=== PATIENT | female | born 1955 | race Caucasian/White ===

== ENCOUNTER 2017-07-19 14:11 | Emergency (ER) | payer BC ==
--- NOTE | 2017-07-19 14:57 | ED ---
Psych HPI - General Chief Complaint: Psychiatric Symptoms Stated Complaint: Anxiety Time Seen by Provider: 07/19/17 14:30 Source: patient Mode of arrival: ambulatory - History of Present Illness Initial Comments: This 61-year-old white female presents for psychiatric evaluation. She relates that approximately 6 weeks ago she started developing significant anxiety and has been having panic attacks regularly. This seems to stem from a certain degree due to her family situation. She does complain of some depression but denies any suicidal ideations. She was started on Xanax 0.25 mg during the day and 0.5 mg at night with some mild relief. She also was started on Lexapro 10 mg daily one month ago and this was increased to 20 mg per day approximately one week ago. She denies any definitive relief with the Lexapro. She presents with her brother who gives a significant amount of the history. He relates that she is a very highly functioning individual normally but in the past 6 weeks there is been a significant decline due to the anxiety and depression. She denies any chronic medical problems and does not take any other medications. She denies any current medical issues. There is no chest pain, shortness of breath, or fevers. She does not have any previous history of psychiatric problems. She has been working with her primary care physician in regards to these issues. They saw her this morning and sent her to the ER for further psychiatric evaluation. No other complaints or modifying factors. She took a Xanax one hour prior to arrival and is refusing any additional medications at this time. - Related Data Home Medications Medication Instructions Recorded Confirmed ALPRAZolam [Xanax] 0.25 mg PO BID PRN 07/19/17 07/19/17 Escitalopram Oxalate [Lexapro] 10 mg PO DAILY 07/19/17 07/19/17 Zolpidem Tartrate [Ambien Cr] 12.5 mg PO HS 07/19/17 07/19/17 Allergies Allergy/AdvReac Type Severity Reaction Status Date / Time No Known Allergies Allergy Verified 07/19/17 15:06 Review of Systems ROS Statement: Those systems with pertinent positive or pertinent negative responses have been documented in the HPI. ROS Other: All systems not noted in ROS Statement are negative. Past Medical History Past Medical History: No Reported History History of Any Multi-Drug Resistant Organisms: None Reported Past Surgical History: Hysterectomy Past Psychological History: Anxiety, Depression Smoking Status: Current every day smoker Past Alcohol Use History: Rare Past Drug Use History: None Reported General Exam - General Exam Comments Initial Comments: GENERAL: The patient is well nourished and well hydrated. VITAL SIGNS: Heart rate, blood pressure, respiratory rate reviewed as recorded in nurse's notes. EYES: Pupils are round and reactive. Extraocular movements are intact. No conjunctival / lid redness or swelling. ENT: No external evidence of injury, swelling, or ecchymosis. Airway is patent. Throat is clear. NECK: Nontender. No swelling or evidence of injury. No subcutaneous emphysema. Trachea is midline. No thyroid mass. HEART: Regular rate and rhythm. Good peripheral pulses. LUNGS/CHEST: Breath sounds clear and equal bilaterally. No rales, rhonchi, or wheezes. No ecchymosis, subcutaneous emphysema, or tenderness. ABDOMEN: Abdomen soft without tenderness. No palpable masses or organomegaly. No peritoneal signs. No abdominal wall swelling or ecchymosis. EXTREMITIES: No extremity tenderness. Normal muscle tone and function. No thoracolumbar tenderness. NEUROLOGIC: Sensation is grossly intact. Cranial nerve exam reveals face is symmetrical, tongue is midline, speech is clear. SKIN: No abrasions or ecchymosis is noted. No induration or masses noted. PSYCHIATRIC: Alert and oriented. Appropriate behavior and judgment. There is a mild flat affect. There is no signs of anxiety reactions at this time. Limitations: no limitations Course Vital Signs 07/19/17 14:25 Temperature 97.8 F Pulse Rate 62 Respiratory 18 Rate Blood Pressure 99/55 O2 Sat by Pulse 97 Oximetry Medical Decision Making - Medical Decision Making The patient was seen and examined. All diagnostics were reviewed. A consult is placed for psychiatry for further evaluation and treatment. The psychiatry team did evaluate the patient in the ER in the [facility] though she is stable for discharge. Please see their documentation in regard to recommendations. - Lab Data Lab Results 07/19/17 Range/Units 15:12 Urine Opiates Screen Not Detected (NotDetected) Ur Oxycodone Screen Not Detected (NotDetected) Urine Methadone Screen Not Detected (NotDetected) Ur Propoxyphene Screen Not Detected (NotDetected) Ur Barbiturates Screen Not Detected (NotDetected) U Tricyclic Antidepress Not Detected (NotDetected) Ur Phencyclidine Scrn Not Detected (NotDetected) Ur Amphetamines Screen Not Detected (NotDetected) U Methamphetamines Scrn Not Detected (NotDetected) U Benzodiazepines Scrn Detected H (NotDetected) Urine Cocaine Screen Not Detected (NotDetected) U Marijuana (THC) Screen Not Detected (NotDetected) Disposition Clinical Impression: Depression, Acute anxiety Disposition: HOME SELF-CARE Condition: Good Instructions: Generalized Anxiety Disorder (ED), Depression (ED) Additional Instructions: Please follow-up with the psychiatry team's recommendations. Referrals: Leif Ch MD [Primary Care Provider] - 1-2 days Time of Disposition: 17:23
[2017-07-19 17:39] VITALS: BP 131/74; PULSE 52; RESP 14; TEMP 97.6
== END 2017-07-19 17:35 | disposition home or self-care (01) ==
LOC: EC 14:11
DX: F32.9 Major depressive disorder, single episode, unspecified (principal); F41.9 Anxiety disorder, unspecified; F17.200 Nicotine dependence, unspecified, uncomplicated; Z79.899 Other long term (current) drug therapy
CPT/HCPCS: 80306; 82075; 99284

== ENCOUNTER → 2017-12-13 | Outpatient (CLI) | payer BC ==
--- NOTE | 2017-12-13 22:43 | MR ---
EXAMINATION TYPE: MR brain wo con DATE OF EXAM: 12/13/2017 COMPARISON: NONE HISTORY: Decrease in Memory, Headaches TECHNIQUE: Multiplanar, multisequence imaging of the brain and brainstem is performed without IV cont rast. FINDINGS: Diffusion weighted images demonstrate no evidence of a recent infarct or other diffusion abnormality. Old lacunar infarct right thalamus is seen axial image 17. There is no worrisome extraaxial fluid collection . The ventricular system and cisternal spaces are mildly prominent over high bilateral convexities. Some T2 hyperintensity seen periventricular white m atter and left aspect of maurice on axial image 10, nonspecific finding most likely on basis of product of chronic small vessel ischemic change Midline structures demonstrate normal morphology. The craniocervical junction appears within normal limits. Normal vascular flow voids are present. The visualized sinuses are clear and the globes are i ntact. IMPRESSION: No evidence of a recent infarct. Mild nonspecific white matter changes likely on basis of product of chronic small vessel ischemic change. Old right sided lacunar thalamic infarct noted.
== END | disposition home or self-care (01) ==
LOC: RADMRIMAIN 16:40
PROVIDERS: ATTEND Psychiatry & Neurology Neurology
DX: R90.89 Other abnormal findings on diagnostic imaging of central nervous system (principal)
CPT/HCPCS: 70551

== ENCOUNTER → 2018-01-24 | Outpatient (CLI) | payer BC ==
[2018-01-24 16:16] LABS: Partial Thromboplastin Time 24.4 sec (22.0-30.0); Prothrombin Time 9.9 sec (9.0-12.0)
--- NOTE | 2018-01-24 20:13 | US ---
EXAMINATION TYPE: US carotid duplex BILAT DATE OF EXAM: 01/24/2018 COMPARISON: NONE CLINICAL HISTORY: 62-year-old female I63.9 Cardiovascular Accident. Memory loss. Exhaustion. Weight loss. TECHNIQUE: Carotid duplex ultrasound examination. Her criteria was utilized. FINDINGS: Mild atherosclerotic changes at the right bifurcation. EXAM MEASUREMENTS: RIGHT: Peak Systolic Velocity (PSV) cm/sec ----- Right CCA: 77.9 ----- Right ICA: 90.1 ----- Right ECA: 87.5 ICA/CCA ratio: 1.2 RIGHT: End Diastole cm/sec ----- Right CCA: 26.3 ----- Right ICA: 33.1 ----- Right ECA: 87.5 LEFT: Peak Systolic Velocity (PSV) cm/sec ----- Left CCA: 79.8 ----- Left ICA: 80.9 ----- Left ECA: 82.0 ICA/CCA ratio: 1.0 LEFT: End Diastole cm/sec ----- Left CCA: 31.4 ----- Left ICA: 34.7 ----- Left ECA: 14.9 VERTEBRALS (direction of flow): Right Vertebral: Antegrade Left Vertebral: Antegrade Rhythm: Normal IMPRESSION: No hemodynamically significant stenosis appreciated in either internal carotid artery. Criteria for Assigning % of Stenosis / Diameter reduction (Estimation based on the indirect measurements of the internal carotid artery velocities (ICA PSV). 1. Normal (no stenosis)=ICA PSV < 125 cm/s: ratio < 2.0: ICA EDV<40 cm/s. 2. Less than 50% stenosis=ICA PSV < 125 cm/s: ratio < 2.0: ICA EDV<40 cm/s. 3. 50 to 69% stenosis=ICA PSV of 125 to 230 cm/s: ration 2.0 ? 4.0: ICA EDV 40-100 cm/s. 4. Greater than 70% stenosis to near occlusion= ICA PSV > 230 cm/s: ratio > 4.0: ICA EDV > 100 cm/s. 5. Near occlusion= ICA PSV velocities may be low or undetectable: variable ratio and ICA EDV. 6. Total occlusion=unable to detect flow.
[2018-01-25 01:45] LABS: Cardiolipin Ab IgG Interp NEGATIVE (NEGATIVE); Cardiolipin Ab IgM Interp NEGATIVE (NEGATIVE); Cardiolipin IgA Antibody <0.5 U/mL; Cardiolipin IgM Antibody 0.7 U/mL
[2018-01-25 12:05] LABS: APTT 43 Sec(s) (<43); Dilute Russell Viper Venom 37 Sec(s) (<44)
== END | disposition home or self-care (01) ==
LOC: RADUSMAIN 15:20
PROVIDERS: ATTEND Psychiatry & Neurology Neurology
DX: I63.9 Cerebral infarction, unspecified (principal)
CPT/HCPCS: 82607; 83090; 85610; 85613; 85652; 85730; 86038; 86147; 93880

== ENCOUNTER → 2018-03-15 | Outpatient (CLI) | payer BC ==
--- NOTE | 2018-03-16 11:48 | ECHOF ---
Referral Reason:Stroke I63.40 MEASUREMENTS -------- HEIGHT: 165.1 cm WEIGHT: 58.5 kg BP: 112/72 RVIDd: 2.8 cm (< 3.3) IVSd: 1.0 cm (0.6 - 1.1) LVIDd: 4.4 cm (3.9 - 5.3) LVPWd: 0.9 cm (0.6 - 1.1) IVSs: 1.2 cm LVIDs: 3.0 cm LVPWs: 1.3 cm LAESV Index (A-L): 20.39 ml/m Ao Diam: 2.7 cm (2.0 - 3.7) AV Cusp: 1.9 cm (1.5 - 2.6) LA Diam: 2.7 cm (2.7 - 3.8) MV EXCURSION: 16.703 mm (> 18.000) MV EF SLOPE: 144 mm/s (70 - 150) EPSS: 0.5 cm MV E Reece: 0.70 m/s MV DecT: 205 ms MV A Reece: 0.53 m/s MV E/A Ratio: 1.32 RAP: 5.00 mmHg RVSP: 25.87 mmHg FINDINGS -------- Resting bradycardia (HR<60bpm). This was a technically good study. Pt. Has Breast inplants The left ventricular size is normal. Left ventricular wall thickness is normal. Overall left vent ricular systolic function is normal with, an EF between 55 - 60 %. The right ventricle is normal in size and function. Normal LA size by volume 22+/-6 ml/m2. The right atrium is normal in size. There is mild aortic valve sclerosis. There is no evidence of aortic regurgitation. There is no e vidence of aortic stenosis. The mitral valve leaflets are mildly thickened. There is trace mitral regurgitation. Trace tricuspid regurgitation present. Right ventricular systolic pressure is normal at < 35 mmHg. There is no evidence of pulmonary hypertension. The pulmonic valve was not well visualized. The aortic root size is normal. Normal inferior vena cava with normal inspiratory collapse consistent with estimated right atrial pre ssure of 5 mmHg. There is no pericardial effusion. CONCLUSIONS -------- 1. Resting bradycardia (HR<60bpm). 2. This was a technically good study. 3. Pt. Has Breast inplants 4. The left ventricular size is normal. 5. Left ventricular wall thickness is normal. 6. Overall left ventricular systolic function is normal with, an EF between 55 - 60 %. 7. Normal LA size by volume 22+/-6 ml/m2. 8. There is mild aortic valve sclerosis. 9. The mitral valve leaflets are mildly thickened. 10. There is trace mitral regurgitation. 11. Trace tricuspid regurgitation present. 12. Right ventricular systolic pressure is normal at < 35 mmHg. 13. There is no evidence of pulmonary hypertension. 14. The pulmonic valve was not well visualized. 15. The aortic root size is normal. 16. consider LISA if clinically indicated COMPOSITION TEACHER: César Espinoza RDCS
== END | disposition home or self-care (01) ==
LOC: RADECHMAIN 14:44
PROVIDERS: ATTEND Psychiatry & Neurology Neurology
DX: I35.8 Other nonrheumatic aortic valve disorders (principal); I51.7 Cardiomegaly; I63.40 Cerebral infarction due to embolism of unspecified cerebral artery
CPT/HCPCS: 93306

== ENCOUNTER → 2019-07-11 | Outpatient (CLI) | payer BC ==
[2019-07-11 13:02] LABS: Basophils # (A) 0.1 k/uL (0-0.2); Basophils % (A) 1 %; Eosinophils # (A) 0.2 k/uL (0-0.7); Eosinophils % (A) 2 %; HCT 40.7 % (34.0-46.0); HGB 13.2 gm/dL (11.4-16.0); Lymphocytes % (A) 24 %; MCH 29.3 pg (25.0-35.0); MCHC 32.4 g/dL (31.0-37.0); MCV 90.5 fL (80.0-100.0); Mean Platelet Volume 8.4; Monocytes # (A) 0.4 k/uL (0-1.0); Monocytes % (A) 5 %; Neutrophils # (A) 5.4 k/uL (1.3-7.7); Neutrophils % (A) 66 %; Platelet Count 210 k/uL (150-450); RDW 12.1 % (11.5-15.5); WBC 8.2 k/uL (3.8-10.6)
[2019-07-11 20:20] LABS: African American GFR (CKD) 92.2 (60.0-200.0); Albumin 4.2 g/dL (3.80-4.90); Albumin/Globulin Ratio 1.83 (1.60-3.17); Anion Gap 6.3 mmol/L (4.00-12.00); Carbon Dioxide 26.7 mmol/L (21.6-31.8); Chol/HDL Ratio 3.04; Globulin 2.3 g/dL (1.6-3.3); Non-African American GFR(CKD) 79.6 (60.0-200.0); Potassium 4.8 mmol/L (3.5-5.5); Total Bilirubin 0.6 mg/dL (0.3-1.2); Total Protein 6.5 g/dL (6.2-8.2)
== END | disposition home or self-care (01) ==
LOC: LABWHC1 11:56
PROVIDERS: ATTEND Internal Medicine
DX: Z00.00 Encounter for general adult medical examination without abnormal findings (principal); E55.9 Vitamin D deficiency, unspecified
CPT/HCPCS: 36415; 80053; 80061; 82306; 85025

== ENCOUNTER → 2019-07-11 | Outpatient (CLI) | payer BC ==
--- NOTE | 2019-07-13 09:52 | MM ---
Reason for exam: screening (asymptomatic). Last mammogram was performed 3 years and 10 months ago. History: Patient is postmenopausal and is nulliparous. Retro-pectoral saline implants in both breasts, 1996. Silicone gel implants in both breasts, 1987. Taking estrogen for 10 years beginning at age 42. Physical Findings: A clinical breast exam by your physician is recommended on an annual basis and results should be correlated with mammographic findings. MG 3D Screen Mammo Imp/Cad Bilateral CC, MLO, and ID view(s) were taken. Prior study comparison: September 04, 2015, mammogram, performed at [facility]. There are scattered fibroglandular densities. Bilateral breast prothesis. No significant changes when compared with prior studies. ASSESSMENT: Benign, BI-RAD 2 RECOMMENDATION: Routine screening mammogram of both breasts in 1 year.
== END | disposition home or self-care (01) ==
LOC: RADMAMWWP 12:21
PROVIDERS: ATTEND Obstetrics & Gynecology
DX: Z12.31 Encounter for screening mammogram for malignant neoplasm of breast (principal); Z98.82 Breast implant status
CPT/HCPCS: 77063; 77067